=== PATIENT | female | born 1985 | race Caucasian/White ===

== ENCOUNTER 2021-09-30 07:19 | Outpatient (CLI) | payer OTHER, SELFPAY ==
--- NOTE | 2021-09-30 07:15 | CRLHL7_ITS ---
For Patients: As a result of the Century Cures Act, medical imaging exams and procedure reports are released immediately into your electronic medical record. You may view this report before your referring provider. If you have questions, please contact your health care provider. CLINICAL HISTORY: IUD CHECK TECHNIQUE: 2D buchanan scale and color Doppler images were acquired of the pelvis using a transvaginal approach. FINDINGS: On transvaginal imaging, the myometrium has a normal uniform echotexture. The uterus measures 6.5 x 2.6 x 4.1 cm. Intrauterine device is located within the endometrial canal. The endometrium is not well visualized but appears thickened measuring 15 millimeters on the reconstruction image. The left ovary measures 3.1 x 2.4 x 3.1 cm in size and the right ovary measures 3.4 x 2.8 x 3.0 cm. The ovaries demonstrate normal arterial and venous blood flow on color Doppler analysis. There are no suspicious fluid collections within the cul-de-sac. IMPRESSION: IUD in good position within the endometrial canal. Suggestion of diffuse thickening of the endometrium measuring up to 15 millimeters. Dictated by Tacos Herrera MD @ 09/30/2021 8:20:54 AM (Electronically Signed)
== END 2021-09-30 07:20 | disposition home or self-care (01) ==
LOC: US 07:20
PROVIDERS: PCP Family Medicine; Visit Provider Registered Nurse
DX: Z30.431 Encounter for routine checking of intrauterine contraceptive device (principal)
CPT/HCPCS: 76830

== ENCOUNTER 2021-10-02 11:42 | Outpatient (CLI) | payer OTHER, SELFPAY | END 2021-10-02 11:43 | disposition home or self-care (01) | PROVIDERS: PCP Family Medicine; Visit Provider Registered Nurse | DX: N92.6 Irregular menstruation, unspecified (principal) | CPT/HCPCS: 84443 ==

== ENCOUNTER 2021-11-24 07:19 | Day surgery (SDC) | payer OTHER, SELFPAY ==
[2021-11-24] VITALS (7 sets, daily range): BP systolic 93–103; BP diastolic 67–79; PULSE 54–71; RESP 16; TEMP 36.2–37.2; O2SAT 96–99; BMI 21.7
[2021-11-24 07:43] LABS: Ur HCG Qualitative* Negative (Negative)
[2021-11-24] MEDS: LACTATED RINGERS 1000 ML 1,000 ML 100 ML IV (07:50)
[2021-11-24] MEDS: SODIUM CHLORIDE 0.9 % (FLUSH) 10 ML SYRINGE IVF (07:50)
--- NOTE | 2021-11-24 09:03 | W.PM.GYNPROC ---
Procedure Note Time Seen by Provider: 09:04 Date Seen: 11/24/21 Procedure Details: PREOPERATIVE DIAGNOSIS: 1. Irregular breakthrough bleeding on Mirena IUD 2. Thickened endometrial lining by ultrasound POSTOPERATIVE DIAGNOSIS: 1. Irregular breakthrough bleeding on Mirena IUD 2. Thickened endometrial lining by ultrasound NAME OF PROCEDURE: 1. Hysteroscopy. 2. D and C 3. Polypectomy. 4. Mirena IUD replacement. SURGEON: Adrian. ANESTHESIA: Monitored anesthesia care and paracervical block. COMPLICATIONS: None.. ESTIMATED BLOOD LOSS: <10 mL. FINDINGS: Polypoid tissue posteriorly near the internal cervical os. PATHOLOGY SPECIMENS: 1. Endometrial polyps sent together with endometrial curettings.. PROCEDURE: After obtaining informed consent, the patient was taken to the operating room where she received monitored anesthesia care. She was prepared and draped in the normal sterile fashion, in the dorsal lithotomy position. An open-sided bivalve speculum was introduced into the vagina and the cervix visualized. The anterior lip of the cervix was grasped with a single-tooth tenaculum for traction. A paracervical block was then administered using a total of 20 mL of a 50/50 mixture of 0.25% Marcaine and 1% lidocaine plain. The IUD strings, which were present at the external cervical os, were grasped with a Carmalt clamp, gentle traction was applied, and the Mirena IUD was easily removed and discarded. The uterus was gently sounded. Sound length was 7 cm. The cervix was gently dilated to a # 6 Hegar dilator. A hysteroscope was then advanced under direct visualization through the cervix into the uterine cavity. Sterile normal saline was used as distending medium. The uterine cavity was carefully inspected with the findings noted above. Pictures were taken for documentation purposes. The TruClear morcellator was inserted through the operating channel in the hysteroscope. The morcellator was used to remove the polypoid tissue in its entirety. The hysteroscope was then removed. The endometrial lining was then sharply curetted. The hysteroscope was removed. A new Mirena IUD was then set to a sound length of 7 cm, inserted through the cervical os into the uterine cavity, and deployed. The introducer was removed. The strings were trimmed to a 3 cm length. The tenaculum was removed. There was little bleeding from the tenaculum site, which was controlled with direct pressure sponge stick. All instruments were then removed. The patient tolerated the procedure well. Sponge, lap, needle, and instrument counts reported as correct x2. The patient was taken to the recovery room awake in a stable condition. She received 30 mg IV Toradol at the conclusion of the procedure.
--- NOTE | 2021-11-24 09:42 | W.ANESCHARGE ---
Anesthesia Charges Start Date/Time Anesthesia Start Date: 11/24/21 Anesthesia Start Time: 09:05 Stop Date/Time Anesthesia Stop Date: 11/24/21 Anesthesia Stop Time: 09:44 Summary Emergency: No
--- NOTE | 2021-11-24 10:14 | W.ANESCHARGE ---
Anesthesia Charges Start Date/Time Anesthesia Start Date: 11/24/21 Anesthesia Start Time: 09:05 Stop Date/Time Anesthesia Stop Date: 11/24/21 Anesthesia Stop Time: 09:44 Summary Emergency: No
== END 2021-11-24 11:28 | disposition home or self-care (01) ==
PROVIDERS: PCP Family Medicine; Visit Provider Obstetrics & Gynecology
PROC: 0UDB8ZZ Extraction of Endometrium, Via Natural or Artificial Opening Endoscopic (ICD-10-PCS; CPT 58558; principal; 2021-11-24 08:30)
DX: N92.5 Other specified irregular menstruation (principal); R93.89 Abnormal findings on diagnostic imaging of other specified body structures; Z30.433 Encounter for removal and reinsertion of intrauterine contraceptive device
CPT/HCPCS: 58558; 58301; 58300; 00952; 81025; 88305; J1100; J1885; J2250; J2405; J2704; J3010; J7120; J7298

== ENCOUNTER 2022-02-24 16:30 | Outpatient (RCR) | payer OTHER, SELFPAY ==
--- NOTE | 2021-12-24 06:59 | PT.OPDNX ---
PT [place] [facility] Daily Note PT [facility] Daily Note Start: 08/28/21 10:28 Freq: Status: Active Protocol: Document 12/23/21 16:18 ARR (Rec: 12/23/21 17:30 ARR [email or web address]) E-signed By Nayeli Green DPT PT OP Daily Progress Note Visit Information Note Type Daily Note Visit Number 12 Cancellation Note Cancelled Documentation CHUN Insurance Information Insurance Information/Comments [facility] [employer] Eval 08/28/21 // 1x/wk x 12 visits Recert: 12/23/21 // every 2 weeks x 10 visits Medical Diagnosis N39.3 ANASTACIA M62.08 diastasis recti R52 pain aggravated by exercise Treating Diagnosis N39.3 Stress incontinence R10.30 Lower abdominal pain, unspecified N94.2 vaginismus R27.8 Lack of coordination ( muscle incoordination) Referring Keyana Manuel, [employer] Subjective Subjective -Started interval run/walk - was conservative. -2 min walk / 30 sec run x 30 min. First few times felt a pinch in L LQ just under underwear. Got better with run -Ran 7 times with intervals above for 3-8 times. Didn't leak but did have a little bit of urge to go. Precautions Treatment Precautions/Contraindications IUD Home Exercise Home Exercise Comments OTHER: -Constipation handout 08/28 -PF letting go handout 08/28 -FIber types handout 08/28 -Happy baby or child's pose deep breathing to implement daily for PF lengthening - added HEP and gave handouts this date - Perineal massage/scar tissue -Pt to complete every other day 3-5 min progressing toward 10 min. -Exercises: glut med wall squat Access Code: [email or web address] URL: [email or web address] Date: 08/28/2021 Prepared by: Nayeli Green Exercises Sidelying Thoracic and Shoulder Rotation - 1 x daily - 7 x weekly - 8-10 reps Sidelying Diaphragmatic Breathing - 1 x daily - 7 x weekly - 4-6 reps Objective Other/Pertinent Objective 11/10: -TTP R psoas, QL, rectus femoris at distal insertion and lower 1/3 muscle belly, R lower quadrant myofascial tissue Standing IC R higher than L by 1 thumbwidths. Supine R ASIS/ medial malleoli lower -Diaphragm restrictions on R -TA inhibition tending to brace from top down with upper abdominal gripping EXTERNAL OBJECTIVE: 09/25 -Movement screen: MS flexion WNL, MS extension reduced LS and TS. MS rotation 25% limitation. -SLS: Mild pelvic drop on R LE , Hip hiking on L LE -Posture: R sided iliac crest elevated, Inc?d TS kyphosis, elevated IC on R side. Dec?d LS lordosis. -PROM hip: IR L 30 / R 60. ER 100 L / 90 R. -Supine alignment: medial malleoli and ASIS lower -Strength: glut medius 2+ bilat -Flexibility: Mike pos bilat in sidelying, HS pos bilat -TA firing/coordination: impaired motor control with inc?d upper ab activation -Myofascial palpation: reduced over linea alba and upper abs Functional Test Performed & Score PFQ: -Bladder 8/45, bowel 15/34, sexual 8/40, prolapse 0 Marinoff scale: 1 Patient Instructed in Risks/Benefits Yes Neuromuscular Re-Ed Neuromuscular Reeducation Minutes ( 60 minutes) Neuromuscular Reeducation Comments NMR for improving motor control and muscle firing -hooklying PF/TA prebrace with exhale x 8 reps -hooklying PF/TA prebrace with ball squeeze 8 x 5 holds -Prebrace PF/TA with bridge x 5 reps -Prebrace PF/TA bridge w/alt LE may 03 x 1 reps. x 8 reps - progression of HEP to more reps less sets -Prebrace PF/TA with alt LE april x 6 reps --Prebrace PF/TA side plank from knees 5 x 10 sec holds ea side - progressed HEP -Prebrace PF/TA with modified front plank 5 x 5 holds - added HEP Standing -Prebrace PF/TA with SLS x 20 sec ea side - -Prebrace PF/TA with hip abduction 2 x 5 reps -Prebrace PF/TA with unilateral march x 5 reps ea LE -Single Heel raise x 12 reps ea LE - Standing glut med wall squat - verbal review Treatment Minutes Timed Code Treatment Minutes 60 Total Treatment Time 60 Billing Units Neuromuscular Reeducation Units 4 Assessment/Impression Assessment/Impression Pt noting urinary leakage with running, did go back/review all exercises and implemented PF/TA pre-brace prior to all mvmt to facilitate improved coordination of pelvic floor and lower abdominals. Pt showing improved postural support/stability in previously completed exercises comparted to last session. Continues to require cues 50% of the time for form and motor recruitment. Next session plan to return internally for assessment of PFM strength and coordination for possibility of adding purposeful kegels to HEP. Pt continues to show benefit from skilled PT as she continues to have abdominal pain and urinary leakage with higher level activity. Likely to benefit from extension of current plan of care due to continued skilled therpay need that is indicated. Pt to work on chewing food more for improved digestion as pt continues to have firmer stool . Plan of Care Physical Therapy Goals STG (within 10 weeks) 1) Pt will demonstrate proper coordination of motor recruitment patterns for PF then TA activation during isometric activation while maintaining diaphragmatic breathing pattern - MET 2)Pt will report at least 30% improvement in abdominal pain since start of therapy - MET LTG (within 20 weeks) 1)Pt will be able to run 3-4 miles without onset of urinary leakage - UNMET 2)Pt will report at least 75% improvement in abdominal pain since start of therapy - PROGRESSING TOWARD 3) Pt will demonstrate proper coordination of motor recruitment patterns for PF then TA activation during dynamic UE/LE movements in all postures while maintaining diaphragmatic breathing pattern - PROGRESSING TOWARD 4) Pt will demonstrate at least 50% improvement in PFQ score for improved QOL - UNMET Daily Plan of Care Continue per POC Daily Plan of Care Comments PLAN: -Supine ball press -Return to running screen -Return interally for PFM strength and coordination with other exercises Recertification Information Initial Certification Date 08/28/21 Recertification Start Date 12/24/21 Reasons to Continue Skilled Therapy Pt had been seen for abdominal pain and urinary leakage for 12 visits from 08/28/2021 to 12/23/2021 during this episode of physical therapy. Focus of therapy on pelvic floor lengthening with deep breathing, spinal mobility, and hip stretching. Also on core and glut strengthening. Interventions including manual therapy, therapeutic exercise , self-care, neuromuscular re- education, gait training. Pt at this time has not met all short/alf goals and would benefit from continued therapy at a frequency of 1x every 2 weeks for 20 weeks for an additional 10 visits for continued progression of proximal strengthening and coordination for return to higher level activity so she is able to run and jump with her son. Rehabilitation Potential Good Continued Plan of Care and Interventions Focus of therapy on pelvic floor lengthening with deep breathing, spinal mobility, and hip stretching. Also on core and glut strengthening. Interventions including manual therapy, therapeutic exercise , self-care, neuromuscular re- education, gait training. Provider Signature Shows Agreement With POC & Medical Necessity Physician Comment/Change Comment or Changes
== END 2022-05-10 12:46 | disposition home or self-care (01) ==
PROVIDERS: PCP Family Medicine; Visit Provider Registered Nurse
DX: N39.3 Stress incontinence (female) (male) (principal); Z51.89 Encounter for other specified aftercare
CPT/HCPCS: 97110; 97112; 97140; 97161; 97535

== ENCOUNTER 2022-03-12 14:03 | Outpatient (CLI) | payer OTHER, SELFPAY | END 2022-03-12 14:04 | disposition home or self-care (01) | LOC: NFLDREF 14:03 | PROVIDERS: PCP Family Medicine; Visit Provider Physician Assistant | DX: R63.4 Abnormal weight loss (principal) | CPT/HCPCS: 84443 ==

== ENCOUNTER 2022-03-26 14:39 | Outpatient (CLI) | payer OTHER, SELFPAY ==
[2022-03-26 18:51] LABS: Chlamydia DNA Amplified* NOT DETECTED (No Detected); GC DNA Amplified* NOT DETECTED (No Detected)
== END 2022-03-26 14:40 | disposition home or self-care (01) ==
LOC: NFLDREF 14:56
PROVIDERS: PCP Family Medicine; Visit Provider Physician Assistant
DX: N89.8 Other specified noninflammatory disorders of vagina (principal)
CPT/HCPCS: 87491; 87591

== ENCOUNTER 2022-04-01 08:47 | Outpatient (CLI) | payer OTHER, SELFPAY ==
--- NOTE | 2022-04-01 09:53 | W.ANESCHARGE ---
Anesthesia Charges Start Date/Time Anesthesia Start Date: 04/01/22 Anesthesia Start Time: 09:55 Stop Date/Time Anesthesia Stop Date: 04/01/22 Anesthesia Stop Time: 10:31
--- NOTE | 2022-04-01 10:34 | W.ANESCHARGE ---
Anesthesia Charges Start Date/Time Anesthesia Start Date: 04/01/22 Anesthesia Start Time: 09:55 Stop Date/Time Anesthesia Stop Date: 04/01/22 Anesthesia Stop Time: 10:31
== END 2022-04-01 08:48 | disposition home or self-care (01) ==
LOC: OP CLINIC 08:47
PROVIDERS: PCP Family Medicine; Visit Provider Surgery
DX: K62.5 Hemorrhage of anus and rectum (principal); K62.89 Other specified diseases of anus and rectum
CPT/HCPCS: 00811; 45380; 87186; 88305; J2704

== ENCOUNTER 2022-04-02 07:48 | Outpatient (CLI) | payer OTHER, SELFPAY ==
--- NOTE | 2022-04-02 08:00 | CRLHL7_ITS ---
For Patients: As a result of the Century Cures Act, medical imaging exams and procedure reports are released immediately into your electronic medical record. You may view this report before your referring provider. If you have questions, please contact your health care provider. INDICATION: Lower abdominal pain. TECHNIQUE: CT abdomen and pelvis acquired with intravenous contrast, 66 mL of Isovue 370. Coronal and sagittal reformats. COMPARISON: Pelvic ultrasound 09/30/2021. FINDINGS: The imaged lower chest is unremarkable. - Normal liver contour. Right anterior hepatic 1.0 cm hyperenhancing lesion (series 2, image 30) indeterminate but potentially a flash-filling hemangioma. The portal veins are patent. No biliary dilatation. The gallbladder, pancreas, spleen, and adrenals are unremarkable. - Symmetric renal enhancement. No hydronephrosis bilaterally. Decompressed urinary bladder. Anteverted uterus with IUD in place. Trace pelvic free fluid. - The bowel appears normal in caliber and enhancement diffusely. Normal appendix. No pneumoperitoneum, focal collection, or lymphadenopathy. - Normal caliber abdominal aorta. The major aortic branch vessels are patent. IMPRESSION: 1. No acute findings or CT correlate for dominant pain definitively identified. 2. Anteverted uterus with IUD in place. 3. Trace pelvic free fluid is nonspecific but likely physiologic. Please note that all CT scans at this facility use dose modulation, iterative reconstruction, and/or weight-based dosing when appropriate to reduce radiation dose to as low as reasonably achievable. Dictated by Jose Doe MD @ 04/03/2022 3:49:21 PM (Electronically Signed)
== END 2022-04-02 07:49 | disposition home or self-care (01) ==
LOC: CT 07:48
PROVIDERS: PCP Family Medicine; Visit Provider Surgery
DX: R10.30 Lower abdominal pain, unspecified (principal); R19.8 Other specified symptoms and signs involving the digestive system and abdomen; N89.8 Other specified noninflammatory disorders of vagina
CPT/HCPCS: 74177; Q9967

== ENCOUNTER 2022-04-09 13:09 | Outpatient (CLI) | payer OTHER, SELFPAY | END 2022-04-09 13:10 | disposition home or self-care (01) | PROVIDERS: PCP Family Medicine; Visit Provider Obstetrics & Gynecology | DX: N89.8 Other specified noninflammatory disorders of vagina (principal) | CPT/HCPCS: 87070; 87075; 87109; 87186 ==

== ENCOUNTER 2022-04-12 14:54 | Outpatient (CLI) | payer OTHER, SELFPAY | END 2022-04-12 14:55 | disposition home or self-care (01) | LOC: NFLDREF 14:55 | PROVIDERS: PCP Family Medicine; Visit Provider Obstetrics & Gynecology | DX: N89.8 Other specified noninflammatory disorders of vagina (principal); B95.0 Streptococcus, group A, as the cause of diseases classified elsewhere | CPT/HCPCS: 87040 ==

== ENCOUNTER 2022-05-03 15:16 | Outpatient (CLI) | payer OTHER, SELFPAY | END 2022-05-03 15:17 | disposition home or self-care (01) | PROVIDERS: PCP Family Medicine; Visit Provider Obstetrics & Gynecology | DX: N89.8 Other specified noninflammatory disorders of vagina; B95.0 Streptococcus, group A, as the cause of diseases classified elsewhere | CPT/HCPCS: 87070; 87077; 87185; 87186; 87205; 87210 ==

== ENCOUNTER 2022-05-06 09:28 | Outpatient (CLI) | payer OTHER, SELFPAY ==
--- NOTE | 2022-05-06 10:00 | CRLHL7_ITS ---
For Patients: As a result of the Century Cures Act, medical imaging exams and procedure reports are released immediately into your electronic medical record. You may view this report before your referring provider. If you have questions, please contact your health care provider. INDICATION: Possible abscess, vaginal/rectal discharge. History of IUD removal. TECHNIQUE: CT of the abdomen and pelvis with 66 cc Isovue 370 IV contrast. Coronal and sagittal reconstructions. COMPARISON: CT of the abdomen and pelvis 04/02/2022. FINDINGS: Stable 1.1 cm enhancing lesion in the anterior right hepatic lobe (series 2, image 39). Focal fatty infiltration about the falciform ligament. The gallbladder, spleen, pancreas, and adrenal glands are negative. No biliary dilation. Hepatic and portal veins are patent. Symmetric enhancement of the kidneys. No hydronephrosis no ureteral dilation. No obstructing urinary calculi identified. The bladder and uterus are normal appearance. Removal of the previously seen IUD. Small follicles in both ovaries. Large amount of stool throughout the colon. The terminal ileum is distended with fecalized material likely due to stasis. The small bowel is otherwise normal in caliber. Negative appendix. No intraperitoneal free air or fluid. No evidence of abscess. Small right inguinal hernia containing fat and fluid. No lymphadenopathy. The bones are unremarkable. The lung bases are clear. IMPRESSION: 1. No acute findings in the abdomen or pelvis. 2. Large amount of stool. The terminal ileum is distended with fecalized material likely due to stasis. 3. Removal of the previously seen IUD. No evidence of abscess. 4. Stable small enhancing lesion in the right hepatic lobe. This could be further evaluated with nonemergent contrast-enhanced MRI if clinically indicated. Please note that all CT scans at this facility use dose modulation, iterative reconstruction, and/or weight-based dosing when appropriate to reduce radiation dose to as low as reasonably achievable. Dictated by Katy Buckner MD @ 05/06/2022 10:37:52 AM (Electronically Signed)
== END 2022-05-06 09:29 | disposition home or self-care (01) ==
LOC: CT 09:29
PROVIDERS: PCP Family Medicine; Visit Provider Obstetrics & Gynecology
DX: N89.8 Other specified noninflammatory disorders of vagina (principal); K76.9 Liver disease, unspecified; N71.1 Chronic inflammatory disease of uterus; B95.0 Streptococcus, group A, as the cause of diseases classified elsewhere
CPT/HCPCS: 74177; Q9967